=== PATIENT | female | born 1950 | race Caucasian/White ===

== ENCOUNTER 2022-09-22 07:25 | Day surgery (SDC) | payer MEDICARE, OTHER ==
[~2022-09-22] VITALS: Ht 162.6 cm; Wt 61.2 kg
[2022-09-22] MEDS ORDERED: MULTI VIT PO (07:33)
[2022-09-22 09:07] VITALS: BP 104/63
== END 2022-09-22 09:25 | disposition home or self-care (01) ==
LOC: ENDO 07:25 → ORM 09:40
PROVIDERS: ATTEND Surgery
PROC: 0DJD8ZZ Inspection of Lower Intestinal Tract, Via Natural or Artificial Opening Endoscopic (ICD-10-PCS; principal; 2022-09-22)
DX: Z12.11 Encounter for screening for malignant neoplasm of colon (principal); K57.30 Diverticulosis of large intestine without perforation or abscess without bleeding; Z80.0 Family history of malignant neoplasm of digestive organs